=== PATIENT | female | born 1985 | race Caucasian/White ===

== ENCOUNTER 2022-04-04 19:20 | Emergency (ER) | payer OTHER ==
[~2022-04-04] VITALS: Ht 157.5 cm; Wt 72.6 kg
--- NOTE | 2022-04-04 19:28 | NUR ---
PT TAKEN TO BED 3
[2022-04-04 19:49] VITALS: BP 121/80
--- NOTE | 2022-04-04 19:50 | NUR ---
36 YO F BIB SELF WITH C/C OF FEVER X1PM. REPORTS ACUTE ONSET OF CHILLS, WEAKNESS AND H/A. PT REPORTS BREAST FEEDING. RT BREAST IS RED, TENDER AND HOT TO TOUCH. DENIES PMHX, RX, ALLERGIES
--- NOTE | 2022-04-04 19:50 | NUR ---
FIRST CONTACT WITH PT. SEE ASSESSMENT. IV ESTABLISHED. BLOODS DRAWN. AWAITING FURTHER ORDERS. PT UPDATED ON POC WITH FULL RETURNED VERBAL UNDERSTANDING. WILL CONTINUE TO MONITOR.
--- NOTE | 2022-04-04 19:55 | NUR ---
Female Hearing And Speech Assistant accompanied female patient for BREAST Exam.
[2022-04-04] MEDS ORDERED: CEPH-588 PO (20:18)
[2022-04-04] MEDS ORDERED: NACL 0.9% 1,000 ML IV ONE (20:20)
--- NOTE | 2022-04-04 20:40 | NUR ---
Patient discharged with v/s stable. Written and verbal after care instructions given and explained. Patient alert, oriented and verbalized understanding of instructions. Ambulatory with steady gait. All questions addressed prior to discharge. ID band removed. Patient advised to follow up with PMD. Rx of KELFLEX given. Patient educated on indication of medication including possible reaction and side effects. Opportunity to ask questions provided and answered.
== END 2022-04-04 20:40 | disposition home or self-care (01) ==
LOC: MED 19:20
DX: N61.0 Mastitis without abscess (principal); Z79.899 Other long term (current) drug therapy; Z98.890 Other specified postprocedural states
CPT/HCPCS: 99283; J7030; 96360